=== PATIENT | female | born 1950 | race Caucasian/White ===

== ENCOUNTER 2022-04-29 09:00 | Outpatient (CLI) | payer MEDICARE, SELFPAY | END 2022-04-29 09:01 | disposition home or self-care (01) | LOC: INJ CL 09:04 | PROVIDERS: PCP Family Medicine; Visit Provider Family Medicine | DX: M48.061 Spinal stenosis, lumbar region without neurogenic claudication (principal); M41.80 Other forms of scoliosis, site unspecified; M54.16 Radiculopathy, lumbar region; M54.59 Other low back pain | CPT/HCPCS: 64483; 64484; J1100; Q9966 ==